=== PATIENT | male | born 1955 | race African-American/Black ===

== ENCOUNTER → 2016-11-05 | Outpatient (CLI) | payer OTHER ==
--- NOTE | 2016-11-05 16:01 | XR ---
EXAMINATION TYPE: XR wrist complete RT DATE OF EXAM: 11/05/2016 1:23 PM COMPARISON: NONE HISTORY: 60-year-old male with right wrist pain TECHNIQUE: 3 views FINDINGS: There is widening of the scapholunate interval at 2.8 mm. Radiocarpal and distal radial ulnar joint a ppear intact. Degenerative changes at the first CMC joint with marginal spurring. Additional marginal spurring and joint space and at the second MCP joint. No acute fracture or dislocation. IMPRESSION: 1. 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 2. 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
== END | disposition home or self-care (01) ==
LOC: RADXRMAIN 13:09
PROVIDERS: ATTEND Psychiatry & Neurology Neurology
DX: M19.031 Primary osteoarthritis, right wrist (principal)

== ENCOUNTER → 2017-02-19 | Outpatient (CLI) | payer OTHER ==
[2017-02-19 13:25] LABS: CH 28.8; CHCM 33.9; HCT 44.7 % (39.0-53.0); HDW 2.43; MCH 28.6 pg (25.0-35.0); MCHC 33.5 g/dL (31.0-37.0); MCV 85.4 fL (80.0-100.0); Mean Platelet Volume 8.2; RBC 5.23 m/uL (4.30-5.90); RDW 15.1 % (11.5-15.5); WBC 6.2 k/uL (3.8-10.6)
[2017-02-19 13:44] LABS: Anion Gap 11 mmol/L; Blood Urea Nitrogen 16 mg/dL (9-20); Carbon Dioxide 27 mmol/L (22-30); Chloride 101 mmol/L (98-107); Non-African American GFR(MDRD) 59 (>60 ml/min/1.73 sqM); Potassium 4.3 mmol/L (3.5-5.1); Sodium 139 mmol/L (137-145)
== END | disposition home or self-care (01) ==
LOC: LABPAT 12:29
PROVIDERS: ATTEND Internal Medicine Interventional Cardiology
DX: Z01.812 Encounter for preprocedural laboratory examination (principal); I73.9 Peripheral vascular disease, unspecified
CPT/HCPCS: 80051; 82565; 84520; 85027

== ENCOUNTER 2017-03-02 06:00 | Day surgery (SDC) | payer OTHER ==
[2017-02-24 14:33] VITALS: BMI 43.8
[2017-03-02] MEDS ORDERED: SODIUM CHLORIDE 0.9% 1,000 ML in EMPTY BAG 1 BAG IV ONE (06:27)
[2017-03-02] MEDS ORDERED: ASPIRIN 325 MG TAB ONE (06:46)
[2017-03-02 07:04] VITALS: TEMP 98.5
[2017-03-02] MEDS ORDERED: MIDAZOLAM 2 MG/2 ML VIAL IV ONE (08:04)
[2017-03-02] MEDS ORDERED: LIDOCAINE 2% INJ 20 MG/ML SQ ONE (08:04)
[2017-03-02] MEDS: VERAPAMIL SYRINGE (5 MG/10 ML) INTRAARTER ONE ×2 (08:05→08:31)
[2017-03-02] MEDS ORDERED: HEPARIN SODIUM 1,000 UN/ML (10ML VL) IV ONE (08:06)
[2017-03-02] MEDS ORDERED: IODIXANOL 320 MG/ML 100 ML INTRAARTER ONE (08:31)
[2017-03-02] MEDS ORDERED: SODIUM CHLORIDE 0.9% 1,000 ML IV SCH (08:45)
--- NOTE | 2017-03-02 09:00 | IR ---
EXAMINATION TYPE: IR angio abdominal w runoff DATE OF EXAM: 03/02/2017 CLINICAL HISTORY: PVD per order. TECHNIQUE: Fluoroscopy. COMPARISON: None. FINDINGS: Fluoroscopic guidance was provided during procedure abdominal angiogram with runoff perfor med by Dr. Daugherty. A total of 6.1 minute of fluoroscopic time was utilized during the procedure and 7 fluoroscopic cine images are acquired. Please refer to procedure note for further details as I was no t present nor performed procedure. IMPRESSION: As Above.
[2017-03-02 10:21] VITALS: PULSE 83
[2017-03-02 11:53] VITALS: BP 135/70; RESP 18
--- NOTE | 2017-03-03 07:48 | PTCA ---
DATE OF SERVICE: 03/02/2017 PERFORMING PHYSICIAN: Esdras Daugherty MD, Operations General Agent. PROCEDURE PERFORMED: 1. Abdominal aortogram. 2. Bilateral lower extremities runoff. 3. Bilateral iliac arteries angiogram. INDICATION: This is a pleasant 61-year-old gentleman who was referred by ( ) for bilateral lower extremity discomfort consistent with claudication. The patient had multiple angioplasty in the past with unknown details at this point. APPROACH: Right radial artery. COMPLICATION: None. LEVEL OF SEDATION: Moderate with a sedation length of 30 minutes. PROCEDURE DESCRIPTION: After obtaining an informed consent, the patient was brought to the Cardiac Electronic Publisher. The right radial artery was cannulated using micropuncture technique. The micropuncture wire passed easily, then I placed a 5 Azerbaijani sheath in the right radial artery. Subsequently, I did an abdominal aortogram and bilateral lower extremity runoff using a 5 Azerbaijani Pigtail catheter which was initially placed at the level of the renal arteries, then it was advanced into above the bifurcation of the aorta to right and left common iliac arteries. After that, I did select bilateral external iliac artery using a 5 Azerbaijani multipurpose catheter with multiple old multi ( ). The procedure was completed without any complication. SELECTIVE PERIPHERAL ANGIOGRAM: 1. The abdominal aorta appeared to have mild disease only. 2. Common iliac arteries, the right and left common iliac arteries are angiographically normal. 3. The internal iliac arteries, the right and left internal iliac arteries are patent. 4. The common femoral arteries, the right and left common femoral arteries are patent. 5. The profunda, the right and left profunda are angiographically normal. 6. The SFA, the right and left SFA are occluded with reconstitution by the popliteal. There is tiny stump on each side. 7. Below the knee, there are what seems to be 2 vessel runoff below the knee with anterior tibial and posterior tibial and one vessel runoff below the knee on the left side. Below the knee, opacification was not great. CONCLUSION: 1. Mild aortoiliac disease. 2. Severe bilateral fem-pop disease. 3. Occluded bilateral superficial femoral artery with occlusion extending from the proximal portion to the popliteal. 4. Poor runoff off below the knee bilaterally with poor opacification of below the knee bilaterally. POST-PROCEDURE MANAGEMENT: 1. The patient is going to be discharged home. 2. I will discuss with the patient the option between surgical versus percutaneous revascularization. 3. Followup with the patient. STELLAD
== END 2017-03-02 14:12 | disposition home or self-care (01) ==
LOC: CATHCVL 06:00
PROVIDERS: ATTEND Internal Medicine Interventional Cardiology
DX: I77.9 Disorder of arteries and arterioles, unspecified (principal); I73.9 Peripheral vascular disease, unspecified; I10 Essential (primary) hypertension; E78.5 Hyperlipidemia, unspecified; F17.210 Nicotine dependence, cigarettes, uncomplicated; Z79.02 Long term (current) use of antithrombotics/antiplatelets; Z79.82 Long term (current) use of aspirin; Z79.899 Other long term (current) drug therapy
CPT/HCPCS: 99152; 36246; 75625; 75716; 99153; C1769 ×4; C1894; J2001; J2250; Q9967; J1644

== ENCOUNTER 2017-03-25 08:27 | Day surgery (SDC) | payer OTHER ==
[2017-03-18 16:17] VITALS: BMI 44.8
[~2017-03-25 08:27] MED LIST: ALPRAZolam 0.25 MG TAB PO PRN; ASPIRIN 325 MG TAB PO STA; SODIUM CHLORIDE 0.9% 1,000 ML in EMPTY BAG 1 BAG IV ONE
[2017-03-25 08:58] LABS: Basophils % (A) 1 %; CH 29.5; Eosinophils # (A) 0.2 k/uL (0-0.7); Eosinophils % (A) 2 %; HCT 43.4 % (39.0-53.0); HGB 14.1 gm/dL (13.0-17.5); Luc # (Auto) 0.13; Luc % (Auto) 2; Lymphocytes # (A) 1.1 k/uL (1.0-4.8); Lymphocytes % (A) 15 %; MCH 28.3 pg (25.0-35.0); MCHC 32.4 g/dL (31.0-37.0); MCV 87.3 fL (80.0-100.0); Mean Platelet Volume 7.7; Monocytes # (A) 0.5 k/uL (0-1.0); Monocytes % (A) 7 %; Neutrophils # (A) 5.3 k/uL (1.3-7.7); Neutrophils % (A) 73 %; RBC 4.97 m/uL (4.30-5.90); RDW 15.3 % (11.5-15.5); WBC 7.3 k/uL (3.8-10.6); WBC (Perox) 7.29
[2017-03-25] MEDS ORDERED: SODIUM CHLORIDE 0.9% 1,000 ML IV ONE (09:02)
[2017-03-25 09:09] LABS: Anion Gap 12 mmol/L; Blood Urea Nitrogen 30 mg/dL (9-20); Calcium 9.8 mg/dL (8.4-10.2); Carbon Dioxide 23 mmol/L (22-30); Chloride 105 mmol/L (98-107); Glucose 108 mg/dL (74-99); Non-African American GFR(MDRD) 56 (>60 ml/min/1.73 sqM); Potassium 4.1 mmol/L (3.5-5.1); Sodium 140 mmol/L (137-145)
[2017-03-25] MEDS: MIDAZOLAM 2 MG/2 ML VIAL IVP ONE ×2 (10:21→11:45)
[2017-03-25] MEDS ORDERED: LIDOCAINE 2% INJ 20 MG/ML SQ ONE (10:31)
[2017-03-25] MEDS ORDERED: HEPARIN SODIUM 1,000 UN/ML (10ML VL) IV ONE ×2 (10:35→11:35)
[2017-03-25] MEDS: fentaNYL (PF) 50 MCG/ML 2 ML AMP IV ONE ×2 (12:09→13:28)
[2017-03-25] MEDS: HYDROmorphone 2 MG/ML 1 ML SYRINGE IVP ONE ×2 (12:55→13:55)
[2017-03-25] MEDS ORDERED: MIDAZOLAM 2 MG/2 ML VIAL IVP ONE (13:55)
[2017-03-25] MEDS ORDERED: niCARdipine Syringe (1,000 mcg/10 mL) INTRAARTER ONE (13:57)
[2017-03-25] MEDS ORDERED: NITROGLYCERIN 1000MCG/10ML SYRINGE INTRAARTER ONE (13:57)
[2017-03-25] MEDS ORDERED: CLOPIDOGREL 75 MG TAB PO ONE (14:06)
[2017-03-25] MEDS ORDERED: IODIXANOL 320 MG/ML 100 ML INTRAARTER ONE (14:11)
[2017-03-25] MEDS ORDERED: ALBUTEROL NEBULIZED 2.5 MG/3 ML INHALATION PRN (14:27)
[2017-03-25] MEDS ORDERED: CLOTRIMAZOLE 1% CREAM 15 GM TUBE TOPICAL PRN (14:27)
[2017-03-25] MEDS ORDERED: HYDROcodone/APAP 7.5-325MG 1 EACH TAB PO PRN (14:27)
[2017-03-25] MEDS ORDERED: FLUTICASONE 50MCG/SPRAY NASAL 16GM EA NOSTRIL PRN (14:27)
[2017-03-25] MEDS ORDERED: SODIUM CHLORIDE 0.9% 1,000 ML IV SCH (14:30)
[2017-03-25] MEDS ORDERED: amLODIPine 10 MG TAB PO SCH (16:00)
[2017-03-25] MEDS: GABAPENTIN 400 MG CAP PO SCH ×2 (16:15→21:18)
[2017-03-25] MEDS ORDERED: ATROPINE SULFATE 0.1 MG/ML 10ML SYRINGE ONE (17:08)
[2017-03-25] MEDS ORDERED: ASPIRIN 325 MG TAB PO SCH (21:00)
[2017-03-25] MEDS ORDERED: ALLOPURINOL 100 MG TAB PO SCH (21:00)
[2017-03-25] MEDS ORDERED: ATORVASTATIN 40 MG TAB PO SCH (21:00)
[2017-03-25] MEDS: FERROUS SULFATE 325 MG TAB PO SCH (21:18)
[2017-03-26 06:52] LABS: Non-African American GFR(MDRD) >60 (>60 ml/min/1.73 sqM)
[2017-03-26] MEDS ORDERED: PANTOPRAZOLE 40 MG TABLET PO SCH (07:30)
[2017-03-26] MEDS: FERROUS SULFATE 325 MG TAB PO SCH (07:58)
[2017-03-26] MEDS: GABAPENTIN 400 MG CAP PO SCH (07:58)
[2017-03-26] MEDS ORDERED: SERTRALINE 100 MG TAB PO SCH (09:00)
[2017-03-26] MEDS ORDERED: FENOFIBRATE 160 MG TAB PO SCH (09:00)
[2017-03-26] MEDS ORDERED: HYDROCHLOROTHIAZIDE 25 MG TAB PO SCH (09:00)
[2017-03-26] MEDS ORDERED: SPIRONOLACTONE 25 MG TAB PO SCH (09:00)
[2017-03-26] MEDS ORDERED: CLOPIDOGREL 75 MG TAB PO SCH (09:00)
[2017-03-26 09:37] VITALS: BP 134/77; PULSE 82; RESP 18; TEMP 97.2
--- NOTE | 2017-03-26 12:06 | PCN ---
DATE OF PROCEDURE: 03/25/2017 PERFORMING PHYSICIAN: Esdras Daugherty M.D., senior ui designer. PROCEDURE PERFORMED: 1. Selective right below the knee angiogram. 2. Selective right superficial femoral artery angiogram. 3. Selective left common femoral artery angiogram. 4. Intravascular ultrasound IVUS of the right SFA. 5. Successful balloon angioplasty of the distal and mid right superficial femoral artery using drug coated balloon with good angiographic results. 6. Successful stenting of the proximal right SFA using ( ) PTX coated stent with good angiographic results. INDICATIONS: This is a pleasant 61-year-old gentleman who is known to have severe peripheral arterial disease who was experiencing severe bilateral lower extremity discomfort. He underwent peripheral angiogram which showed occluded bilateral SFA. He was brought today to undergo an intervention. APPROACH: Left common femoral artery. COMPLICATIONS: None. LEVEL OF SEDATION: Moderate with a sedation length of 216 minutes. PROCEDURE DESCRIPTION: After obtaining informed consent, the patient was brought to the cardiac labeling machine operator. The left common femoral artery was cannulated using micropuncture technique. The micropuncture wire passed easily and then I placed a 6 Grenadian sheath in the left common femoral artery. Subsequently at that point, anticoagulation was initiated using ( ) heparin and an additional 3000 during the procedure with continuous ACT monitoring. After that, I did select the right profunda using 5 Grenadian Rim catheter with 035 Advantage wire. Then, I did exchange my 11 cm 6 Grenadian sheath into 70 cm 6 Grenadian sheath using the 035 Advantage wire. The tip of sheath was positioned in the right common femoral artery. Subsequently, after that, I was able to cross the chronic total occlusion of the right superficial femoral artery which was a long BUSINESS MANAGEMENT ANALYST from the ostium to the popliteal, using an 018 melendrez tip glidewire with backup support of 018 CXI catheter. After that, I was able to advance the CXI catheter to the right popliteal. I did right popliteal angiogram to prove that I was in the true lumen. After that, I did exchange my 018 Melendrez tip Glidewire into 014 Iron man. Subsequently, I did exchange my wire into filter wire. Then I did intravascular ultrasound of the right SFA after I did multiple balloon angioplasty using 1.5 coronary balloon and then a 3.0 peripheral balloon. I did that just to be able to do atherectomy as well as advance the IVUS device. I did intravascular ultrasound of the right SFA using the manual pull back. I was able to realize that I was in the false lumen in the distal and mid right SFA but I was in the true lumen of the proximal right SFA. Also the IVUS helped me to get measurement of the right SFA which was 6 mm. Subsequently, I did balloon angioplasty of the distal and mid right SFA using 5.0 and then 6.0 drug coated balloon. The following angiogram showed good angiographic results. For the proximal SFA, I did balloon angioplasty by ( )dissection where at that point I decided to stent that using silver PTX drug coated stent where the stent was positioned under fluoroscopy guidance and it was deployed. I post dilated using 6 mm balloon. The following angiogram showed excellent angiographic results. After that, I did exchange my 70 cm 6 Grenadian sheath into 11 cm 6 Grenadian sheath. Then I did selective left common femoral artery angiogram before I sutured the sheath. The procedure was completed without any complications. POSTPROCEDURE MANAGEMENT: 1. Dual antiplatelet therapy. 2. Risk factor modifications. 3. Follow-up with the patient. ROBERT
--- NOTE | 2017-03-27 09:08 | IR ---
EXAMINATION TYPE: IR cvc insert >=5 years DATE OF EXAM: 03/25/2017 COMPARISON: NONE HISTORY: Peripheral vascular occlusive disease. Fluoroscopy was provided to the referring clinician. See dictated report from cardiology.
[2017-03-27] MEDS ORDERED: ERGOCALCIFEROL 50,000 UNIT CAP PO SCH (12:00)
--- NOTE | 2017-03-29 21:45 | DS ---
BRIEF HISTORY: this is a very pleasant 61 -year-old gentleman who was admitted to the hospital yesterday and underwent successful percutaneous peripheral intervention and opening chronically occluded right superficial femoral artery. The procedure was performed from the left groin which was soft and nontender and without any bruises. The patient has at least 1+ pulse in the right foot at this point. The patient is going to be discharged home on dual antiplatelet therapy and I will follow-up with the patient in the office next week. ROBERT
== END 2017-03-26 11:14 | disposition home or self-care (01) ==
LOC: CATHCVL 08:27 → 6SEL 14:05 → CATHCVL 03-26 11:14
PROVIDERS: ATTEND Internal Medicine Interventional Cardiology
DX: I70.213 Atherosclerosis of native arteries of extremities with intermittent claudication, bilateral legs (principal); F17.210 Nicotine dependence, cigarettes, uncomplicated; I10 Essential (primary) hypertension; E78.5 Hyperlipidemia, unspecified; Z79.82 Long term (current) use of aspirin; Z79.899 Other long term (current) drug therapy
CPT/HCPCS: 37227; 85347; 37252; 80048; 82565; 85025; 99152; 99153 ×5; C1769 ×8; C1894 ×3; C1725 ×5; C1887; C1714; C1753; C1884; C2623 ×2; C1874; J2001; J2250; J1170; Q9967; J3010; J1644

== ENCOUNTER → 2017-06-24 | Day surgery (SDC) | payer OTHER ==
[2017-06-22 09:43] VITALS: BMI 44.6
[~2017-06-24] MED LIST changes: -ALPRAZolam 0.25 MG TAB PO PRN; +ASPIRIN 325 MG TAB PO ONE; -ASPIRIN 325 MG TAB PO STA
[2017-06-24 13:36] VITALS: BP 124/64; PULSE 78; RESP 18; TEMP 98.1
[2017-06-24 13:49] LABS: Glucose,Whole Blood 110 mg/dL (75-99)
== END ==
LOC: CATHCVL 13:11
PROVIDERS: ATTEND Internal Medicine Interventional Cardiology
DX: I70.213 Atherosclerosis of native arteries of extremities with intermittent claudication, bilateral legs (principal); I10 Essential (primary) hypertension; E78.5 Hyperlipidemia, unspecified; F17.210 Nicotine dependence, cigarettes, uncomplicated; Z79.82 Long term (current) use of aspirin; Z79.899 Other long term (current) drug therapy